=== PATIENT | female | born 1995 | race American Indian/Alaskan Native ===

== ENCOUNTER 2017-03-02 19:01 | Emergency (ER) | payer MEDICAID ==
--- NOTE | 2017-03-02 19:28 | EDM.PDOC ---
ED HPI GENERAL MEDICAL PROBLEM - General Chief Complaint: ENT Problem Stated Complaint: SORE THROAT Time Seen by Provider: 03/02/17 19:27 Source of Information: Reports: Patient History Limitations: Reports: No Limitations - History of Present Illness INITIAL COMMENTS - FREE TEXT/NARRATIVE: 21-year-old female presents the ED with acute onset of severe throat pain this morning. Low-grade fever and pain referred up in 2 years with swallowing. Examination reveals pharyngitis and early tonsillitis mostly on the left side with exudate. Onset: Today Onset Date: 03/02/17 Onset Time: 07:00 Duration: Hour(s): Location: Reports: Neck (Throat.) Quality: Reports: Ache, Burning, Stabbing Severity: Moderate Improves with: Reports: Medication Worsens with: Reports: None Context: Reports: Sick Contact (Sibling with similar illness week ago). Denies : Activity, Exercise, Lifting, Trauma, Other Associated Symptoms: Reports: Cough, Fever/Chills. 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 Denies: Weight Loss HEENT: Reports: Ear Pain (With swallowing.), Throat Pain Respiratory: Reports: Cough (See history of present illness) Cardiovascular: Reports: No Symptoms ( mild nonproductive cough started this evening.) Endocrine: Reports: No Symptoms GI/Abdominal: Reports: No Symptoms : Reports: No Symptoms Musculoskeletal: Reports: No Symptoms Skin: Reports: No Symptoms Neurological: Reports: No Symptoms Psychiatric: Reports: No Symptoms Hematologic/Lymphatic: Reports: No Symptoms ED EXAM, ENT - Physical Exam Exam: See Below Exam Limited By: No Limitations General Appearance: Alert, WD/WN, No Apparent Distress Eye Exam: Bilateral Eye: Normal Inspection Ears: Normal External Exam, Normal Canal, Hearing Grossly Normal, Normal TMs Nose: Normal Inspection, Normal Mucousa, No Blood Mouth/Throat: Normal Inspection, Normal Gums, Normal Teeth, Pharyngeal Erythema (Moderate), Tonsillar Erythema, Tonsillar Exudates, Tonsillar Swelling (Left side). No: Peritonsillar Mass Head: Atraumatic, Normocephalic ( bilaterally.) Neck: Normal Inspection, Supple, Non-Tender, Full Range of Motion, Lymphadenopathy (L), Lymphadenopathy (R) (Mild submandibular mild submandibular) Respiratory/Chest: No Respiratory Distress, Lungs Clear, Normal Breath Sounds, No Accessory Muscle Use Cardiovascular: Normal Peripheral Pulses, Regular Rate, Rhythm, No Edema, No Gallop, No Murmur, No Rub GI/Abdominal: Normal Bowel Sounds, Soft, Non-Tender, No Organomegaly Course - Vital Signs Last Recorded V/S: Last Vital Signs Temp 36.4 C 03/02/17 19:13 Pulse 72 03/02/17 19:13 Resp 16 03/02/17 19:13 BP 132/87 03/02/17 19:13 Pulse Ox 100 03/02/17 19:13 - Orders/Labs/Meds Orders: 21-year-old female attends the ED with a sore throat that started this morning. Hurts very badly to swallow. Pain radiates up into her ears. Examination reveals ears to be normal. She does have bilateral follicular tonsillitis worse on the left as compared to the right. Scattered exudate. On the tonsils were noted Janine did tonsils. Minimal submandibular adenopathy bilaterally. Diagnosis tonsillitis. Treated with Augmentin 500 mg twice daily for 7 days and Motrin 600 mg every 6 hours. For pain and fever relief. Departure - Departure Time of Disposition: 19:33 Disposition: Home, Self-Care 01 Condition: Fair Clinical Impression: Tonsillitis - Discharge Information Prescriptions: Amoxicillin/Clavulanate K [Augmentin 500 MG\125 MG] 1 tab PO Q8HR #14 tablet Instructions: Tonsillitis, [id number] Referrals: PCP,None [Primary Care Provider] - Forms: ED Department Discharge Additional Instructions: Evaluation the emergency room today in regards to acute onset of sore throat this morning. Examination confirms early tonsillitis with left worse than the right. Treatment is to continue pain medication and/or fever medication Motrin 600 mg every 6 hours as needed. Antibiotic is to be Augmentin 500 mg twice daily for the next 7 days. This medicine likes to cause loose stools or diarrhea. It is benefited by eating yogurt on a daily basis sometimes this will prevent the diarrhea from occurring or taking probiotics.
== END 2017-03-02 20:00 | disposition home or self-care (01) ==
LOC: JD.ED 19:01
DX: J03.90 Acute tonsillitis, unspecified (principal)
CPT/HCPCS: 99283